=== PATIENT | female | born 2000 | race Caucasian/White ===

== ENCOUNTER 2019-03-24 13:42 | Emergency (ER) | payer OTHER ==
[~2019-03-24] VITALS: Ht 154.9 cm; Wt 53.1 kg
[2019-03-24 13:49] VITALS: Ht 154.9 cm; Wt 53.1 kg
[2019-03-24 17:35] VITALS: BP 112/52
== END 2019-03-24 17:35 | disposition home or self-care (01) ==
LOC: ED 13:42
DX: J06.9 Acute upper respiratory infection, unspecified (principal); R11.10 Vomiting, unspecified; R51 Headache
CPT/HCPCS: J1885